=== PATIENT | male | born 1940 | race Caucasian/White ===

== ENCOUNTER 2022-08-18 18:07 | Emergency (ER) | payer MEDICARE ==
[2022-08-18] VITALS (14 sets, daily range): BP systolic 165–197; BP diastolic 82–109
[2022-08-18] MEDS ORDERED: LOSARTAN POTASS25 MG PO (18:40)
[2022-08-18] MEDS ORDERED: METOPROL TAR25 MG PO (18:41)
[2022-08-18] MEDS ORDERED: BACTRIM DS1 TAB PO (19:27)
[2022-08-18 19:50] LABS: BASO% 0.8 % (0-3); EOS% 2.4 % (0-8); HEMOGLOBIN 8.5 g/dl (14.0-18.0); IMMATURE GRANULOCYTES 0.2 % (0.0-5.0); LYMPH% 6.4 % (15-41); MEAN CELL VOLUME 92.2 fL CALC (80.0-100.0); MEAN CORPUSCULAR HGB CONC 31.5 g/dL CAL (32.0-36.0); MONO% 9.4 % (2-13); NEUT# 4.31 thou/uL (1.82-7.42); NEUT% 80.8 % (42-76); RED BLOOD COUNT 2.93 mill/uL (4.70-6.10)
[2022-08-18 19:57] LABS: ALBUMIN 3.5 g/dL (3.2-5.0); BILIRUBIN, TOTAL 0.3 mg/dL (0.2-1.3); CREATININE 3.7 mg/dL (0.7-1.3)
[2022-08-18 20:38] LABS: URINE BILIRUBIN - DIPSTICK NEGATIVE (NEGATIVE); URINE BLOOD DIPSTICK TRACE-INTACT (NEGATIVE); URINE COLOR YELLOW; URINE GLUCOSE - DIPSTICK NEGATIVE (NEGATIVE); URINE KETONE NEGATIVE (NEGATIVE); URINE LEUK ESTERASE NEGATIVE (NEGATIVE); URINE NITRITE - DIPSTICK NEGATIVE (Negative); URINE PH 5.5 (4.5-8.0); URINE PROTEIN - DIPSTICK NEGATIVE (NEG-TRACE); URINE UROBILINOGEN - DIPSTICK 0.2 E.U./dL (0.2)
[2022-08-18] MEDS ORDERED: LOPRESSOR50 M1 PO (21:21)
== END 2022-08-18 21:45 | disposition home or self-care (01) ==
LOC: ED 18:07
PROVIDERS: Family Medicine
DX: I10 Essential (primary) hypertension (principal); L03.115 Cellulitis of right lower limb; E11.9 Type 2 diabetes mellitus without complications; Z89.512 Acquired absence of left leg below knee

== ENCOUNTER 2022-08-23 11:47 | Emergency (ER) | payer MEDICARE ==
[~2022-08-23] VITALS: Ht 180.3 cm; Wt 96.8 kg
[~2022-08-23 11:47] MED LIST: BACTRIM DS1 TAB PO; LOPRESSOR50 M1 PO; LOSARTAN POTASS25 MG PO; METOPROL TAR25 MG PO
[2022-08-23] MEDS ORDERED: PROTONIX40 M2 PO (12:11)
[2022-08-23] MEDS ORDERED: METFORMIN HCL1000 MG PO (12:11)
[2022-08-23] MEDS ORDERED: GLIMEPIRIDE2 MG PO (12:12)
[2022-08-23] MEDS ORDERED: LIPITOR40 M1 PO (12:12)
[2022-08-23] MEDS ORDERED: BAYER CHEWABLE81 MG PO (12:13)
[2022-08-23] MEDS ORDERED: MULTI VIT PO (12:14)
[2022-08-23] MEDS ORDERED: VITAMIN D2000 UNI1 PO (12:15)
[2022-08-23 13:14] LABS: BASO% 0.5 % (0-3); EOS% 1.1 % (0-8); HEMATOCRIT 25.4 % (39.0-50.0); HEMOGLOBIN 8.1 g/dl (14.0-18.0); IMMATURE GRANULOCYTES 0.2 % (0.0-5.0); LYMPH% 4.6 % (15-41); MEAN CELL VOLUME 91.7 fL CALC (80.0-100.0); MEAN CORPUSCULAR HGB 29.2 pG CALC (26.0-32.0); MEAN CORPUSCULAR HGB CONC 31.9 g/dL CAL (32.0-36.0); MONO% 9.1 % (2-13); NEUT# 7.02 thou/uL (1.82-7.42); NEUT% 84.5 % (42-76); RED BLOOD COUNT 2.77 mill/uL (4.70-6.10)
[2022-08-23 13:22] LABS: ALBUMIN 3.6 g/dL (3.2-5.0); CREATININE 3.3 mg/dL (0.7-1.3); POTASSIUM 3.9 mmol/l (3.5-5.1); TOTAL PROTEIN 6.1 g/dL (6.3-8.2)
[2022-08-23 13:26] LABS: BILIRUBIN, TOTAL 0.5 mg/dL (0.2-1.3)
[2022-08-23 14:23] LABS: URINE BILIRUBIN - DIPSTICK NEGATIVE (NEGATIVE); URINE BLOOD DIPSTICK TRACE-INTACT (NEGATIVE); URINE COLOR YELLOW; URINE GLUCOSE - DIPSTICK NEGATIVE (NEGATIVE); URINE KETONE NEGATIVE (NEGATIVE); URINE PH 5.5 (4.5-8.0); URINE PROTEIN - DIPSTICK NEGATIVE (NEG-TRACE); URINE UROBILINOGEN - DIPSTICK 0.2 E.U./dL (0.2)
[2022-08-23 14:31] LABS: URINE LEUK ESTERASE SMALL (NEGATIVE); URINE NITRITE - DIPSTICK NEGATIVE (Negative)
[2022-08-23 14:32] LABS: URINE BACTERIA FEW hpf; URINE RBC 0-2 RBC/hpf (0-5)
[2022-08-23 19:32] VITALS: BP 138/83
== END 2022-08-23 19:37 | disposition short-term general hospital (02) ==
LOC: ED 11:47
PROVIDERS: Nurse Practitioner
DX: I82.412 Acute embolism and thrombosis of left femoral vein (principal); N17.9 Acute kidney failure, unspecified; D64.9 Anemia, unspecified; I10 Essential (primary) hypertension; E11.9 Type 2 diabetes mellitus without complications; K21.9 Gastro-esophageal reflux disease without esophagitis; Z89.512 Acquired absence of left leg below knee; Z79.84 Long term (current) use of oral hypoglycemic drugs; Z20.822 Contact with and (suspected) exposure to COVID-19
CPT/HCPCS: J1650